=== PATIENT | male | born 1935 | race Caucasian/White ===

== ENCOUNTER 2024-01-25 11:00 | Outpatient (RCR) | payer MEDICARE, BC, SELFPAY ==
--- NOTE | 2024-02-13 13:48 | ONC.NURNOTE ---
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
== END 2024-07-22 23:59 | disposition home or self-care (01) ==
LOC: CCIC 11:00
PROVIDERS: Referring Provider Radiology Radiation Oncology; Visit Provider Clinical Nurse Specialist
DX: C79.71 Secondary malignant neoplasm of right adrenal gland (principal)
CPT/HCPCS: 99211